=== PATIENT | female | born 1965 | race Caucasian/White ===

== ENCOUNTER 2024-12-14 07:27 | Inpatient (IN) | payer MEDICAID, OTHER ==
[~2024-12-14] VITALS: Ht 170.2 cm; Wt 69.5 kg
[~2024-12-14 07:27] MED LIST: DIAZ2TAB PO; ONDA8TAB9 PO
[2024-12-14 07:54] LABS: MEAN PLATELET VOLUME 7.8 FL (7.4-10.4); RED CELL DISTRIBUTION WIDTH 13.1 % (11.5-14.5)
[2024-12-14] MEDS: normal saline 1000ml 1,000 ML IV ONE ×2 (07:55→11:35)
--- NOTE | 2024-12-14 07:58 | Physician Documentation ---
History of Present Illness ~ Chief Complaint: Nausea Stated Complaint: HAND NUMBNESS AND VOMITING Time Seen by MD: 07:48 Primary Medical Doctor: [facility] HPI 59-year-old female with no past medical history presenting with acute onset nausea and vomiting that started this morning. Patient states that she got to work and suddenly started feeling very nauseous. She had a couple episodes of nonbloody emesis. She reports the nausea has been continuing and she has not been able to keep any food or fluids down. She otherwise denies any diarrhea, chest pain, shortness of breath, fever, chills or any other associated symptoms. Medication Reconciliation Allergies: Coded Allergies: No Known Allergies (Unverified , 08/07/09) Scheduled Ciprofloxacin HCl (Ciprofloxacin HCl), 1 TAB PO BID Miscellaneous Medications Home Med List (No Home Medications), (Reported) Discontinued Medications Diazepam (Valium), 1 TABLET PO TID PRN for pain Discontinued Reason: patient no longer taking Ondansetron (Zofran Odt), 4 MG PO QID PRN for nausea/vomiting Discontinued Reason: patient no longer taking Past Medical History Past Medical History: No Pertinent History, Chronic Pain Past Surgical History: Lives In: Home Occupation: employed Review of Systems All Other Systems at this time: Reviewed and Negative Physical Exam Vital Signs: Temperature: 98.9, Source: Temporal, Heart Rate: 70, Respiratory Rate: 18, BP: 102/53, Pulse Oximetry: 100, Weight: 69.550 Oxygen Flow Rate: 0 Physical Exam I have reviewed the triage vitals. CONST: Well developed and well nourished. In no acute distress HENT: Head Atraumatic EYES: Pupils are equal, round and reactive to light. Normal conjunctiva NECK: Normal range of motion. Supple. CARDIO: Normal rate and regular rhythm. No murmurs, rubs, or gallops. S1, S2. PULM/CHEST: No respiratory distress. Lungs clear to auscultation. No wheeze ABD: Soft and nontender. Nondistended. Bowel sounds normal. No guarding. : Exam deferred MSK: No edema. No deformity. NEURO: Alert and oriented to person, place and time. Moving all extremities SKIN: Warm and dry. PSYCH: Normal mood and affect. Good eye contact. Progress Results/Orders Results/Orders Orders - KALEIGH CEDENO MD Culture Blood (12/14/24 09:47) Page Hospitalist (12/14/24 10:52) Fill Out Med Reconciliation (12/14/24 10:52) Chest,Single View (12/14/24 11:17) Completed Orders - KALEIGH CEDENO MD Cbc/Diff (12/14/24 07:34) Lipase (12/14/24 07:34) CMP (12/14/24 07:34) Hs Troponin I W Calculations (12/14/24 07:54) Normal Saline 1000ml (0.9% Sodium Chlori (12/14/24 07:55) Electrocardiogram (12/14/24 07:54) Ondansetron Inj. (Zofran 4mg/2ml Vial) (12/14/24 07:55) Ua W/Microscopic, Cult If Ind (12/14/24 08:38) Cult Urine + [address] (12/14/24 09:11) Ceftriaxone/U3n-Pqkyjkqo 1gm (Rocephin 1 (12/14/24 09:50) Lacticsepsis (12/14/24 09:47) Normal Saline 1000ml (0.9% Sodium Chlori (12/14/24 10:55) Chest,Single View (12/14/24 11:17) Lactic,2hr (12/14/24 11:12) LA (12/14/24 13:15) Vital Signs 12/14/24 12/14/24 12/14/24 12/14/24 07:30 08:31 08:32 10:02 Temp 98.9 Pulse 70 57 68 Resp 18 16 16 18 B/P (MAP) 102/53 120/86 (97) Pulse Ox 100 98 98 O2 Flow Rate 0 Laboratory Tests Test 12/14/24 07:44 12/14/24 08:38 12/14/24 11:13 12/14/24 12:19 White Blood Count 8.7 Red Blood Count 4.50 Hemoglobin 13.8 Hematocrit 40.0 Mean Corpuscular Volume 89.0 Mean Corpuscular Hemoglobin 30.7 Mean Corpuscular Hemoglobin Concent 34.5 Red Cell Distribution Width 13.1 Platelet Count 344 Mean Platelet Volume 7.8 Neutrophils (%) (Auto) 64.9 Lymphocytes (%) (Auto) 25.3 Monocytes (%) (Auto) 8.0 Eosinophils (%) (Auto) 1.1 Basophils (%) (Auto) 0.7 Neutrophils # (Auto) 5.7 Lymphocytes # (Auto) 2.2 Monocytes # (Auto) 0.7 Eosinophils # (Auto) 0.1 Basophils # (Auto) 0.1 CBC Comment Sodium Level 141 Potassium Level 3.4 L Chloride Level 105 Carbon Dioxide Level 24.6 Anion Gap 11 Blood Urea Nitrogen 14 Creatinine 0.68 Estimated GFR/1.73 m2 89 BUN/Creatinine Ratio 20.6 H Glucose Level 165 H Lactic Acid Level 3.6 H 2.2 H Calcium Level 8.8 Total Bilirubin 0.5 Aspartate Amino Transf (AST/SGOT) 16 Alanine Aminotransferase (ALT/SGPT) 11 L Alkaline Phosphatase 45 L Troponin I High Sensitivity 26 Total Protein 7.0 Albumin 3.3 L Globulin 3.7 Albumin/Globulin Ratio 0.9 L Lipase 44 Chemistry Comments Urine Specimen Description Cln catch midstream Urine Color Yellow Urine Clarity Cloudy Urine pH 6.0 Urine Specific [place] 1.020 Urine Protein Negative Urine Glucose (UA) Negative Urine Ketones Negative Urine Occult Blood Trace-intact Urine Nitrite Negative Urine Bilirubin Negative Urine Urobilinogen 0.2 Urine Leukocyte Esterase Large H Urine RBC 0-2 Urine WBC 50-100 H Urine Squamous Epithelial Cells Moderate Urine Transitional Epithelial Cells Moderate Urine Bacteria 4+ Urine Mucus Moderate Urine Culture Indicated Indicated Volume Urine Centrifuged 10 ml Urine Comment Prothrombin Time 11.0 INR International Normalized Ratio 1.1 Activated Partial Thromboplast Time 26 Coagulation Comments Hemoglobin A1c 5.5 Phosphorus Level 3.1 Magnesium Level 1.8 Pro-B-Type Natriuretic Peptide 43 Thyroid Stimulating Hormone (TSH) 0.52 Test 12/14/24 13:31 Lactic Acid Level 1.9 Microbiology Date/Time Source Procedure Growth Status 12/14/24 10:12 Blood Arm Left Blood Culture - Preliminary NO GROWTH AFTER 4 DAYS Resulted 12/14/24 09:11 Urine Clean Catch Midstream Urine Culture - Final MIXED EL ISOLATED.... Complete EKG/XRAY/CT/US/VASC/MRI EKG : Additional Comment EKG as interpreted by me indicating sinus bradycardia, no ischemia, rate of 53 beats per minute, normal axis CT : Impression DI CHEST,SINGLE VIEW, HISTORY: SOB COMPARISON: None None TECHNICAL DATA: 1 view of the chest was obtained. FINDINGS: Lines and tubes: None Cardiomediastinal silhouette: normal Pulmonary vasculature: normal Lung expansion: normal Lung airspace: normal Lung interstitium: normal Pleura: normal Pneumothorax: no Bones: Unremarkable Other: no IMPRESSION: No acute intrathoracic abnormality. Medical Decision Making Additional Comments 59-year-old female presenting with nausea and vomiting likely secondary to a urinary tract infection with sepsis and likely pyelo nephritis. Patient's urinalysis is indicative of this. Additionally the patient has not elevated lactic acid level of 3.6. Patient was given 2 L of IV normal saline that started on 1 g of IV ceftriaxone as per sepsis protocol. Patient's vitals are normal luckily and she is not yet an septic shock. Patient however requires treatment with IV antibiotics and IV fluids and should be admitted to the inpatient service. Departure Disposition: ADMITTED INPATIENT Admitted to Inpatient Unit: to hospitalist Admission Level of Care: Med/Surg with Tele Impression: Primary Impression: Pyelonephritis Additional Impression: Sepsis Referrals: NO PRIMARY CARE PROVIDER (PCP) Prescriptions Ciprofloxacin HCl (Ciprofloxacin HCl) 500 Mg Tab 1 TAB PO BID for 5 Days, #10 TAB Prov: LIDIA HOLMAN MD 12/17/24 Signature Scribe Signature: 1 Attestation: 1 KALEIGH CEDENO MD Dec 14, 2024 07:58
[2024-12-14 08:19] LABS: CREATININE 0.68 MG/DL (0.40-0.90); TOTAL CARBON DIOXIDE 24.6 MMOL/L (24-32); eCRCL 88 ML/MIN; eGFR 89 ML/MIN
--- NOTE | 2024-12-14 08:19 | ELECTROCARDIOGRAPH REPORT ---
[facility] Test Date: 2024-12-14 Test Time: 08:15:23 Pat Name: ADOLFO DAMON Department: [facility]-ER Patient ID: [facility]-[id number] Room: Gender: F Enforcement Officer: : 1965 Requested By: KALEIGH CEDENO Order Number: [id number] Reading MD: Measurements Intervals [place] Rate: 53 P: 53 LA: 166 QRS: 31 QRSD: 117 T: 34 QT: 462 QTc: 434 Interpretive Statements Sinus bradycardia Nonspecific intraventricular conduction delay Please click the below link to view image of tracing.
[2024-12-14 08:57] LABS: LEUKOCYTE ESTERASE ,URINE LARGE (Neg); NITRITES, URINE NEGATIVE (Neg); OCCULT BLOOD,URINE TRACE-INTACT (Neg); UA COLLECTION TYPE CLN CATCH MIDSTREAM
[2024-12-14 09:06] LABS: MUCUS STRANDS MODERATE /LPF (Neg); SQUAMOUS EPITHELIAL CELL,UR MODERATE /LPF (FEW)
[2024-12-14] MEDS: ondansetron/PF 4mg/2ml inj IV ONE (09:56)
[2024-12-14] MEDS: CefTRIAXone/D5W-Rocephin 1gm 50 ML IV ONE (09:57)
--- NOTE | 2024-12-14 11:40 | RADIOLOGY REPORT ---
DI CHEST,SINGLE VIEW, HISTORY: SOB COMPARISON: None None TECHNICAL DATA: 1 view of the chest was obtained. FINDINGS: Lines and tubes: None Cardiomediastinal silhouette: normal Pulmonary vasculature: normal Lung expansion: normal Lung airspace: normal Lung interstitium: normal Pleura: normal Pneumothorax: no Bones: Unremarkable Other: no IMPRESSION: No acute intrathoracic abnormality.
--- NOTE | 2024-12-14 11:56 | HISTORY AND PHYSICAL ---
History & Physical Providers to Complaint, nausea, vomiting ~ History of Present Illness Reason for Admit\Complaint: As above History of Present Illness This is a 59-year-old female with no past medical history, relatively in good health, except history of , presenting with acute onset nausea and vomiting that started this morning. Patient states that she got to work and suddenly started feeling very nauseous. She had a couple episodes of nonbloody emesis. She reports the nausea has been continuing and she has not been able to keep any food or fluids down. She otherwise denies any diarrhea, chest pain, shortness of breath, fever, chills or any other associated symptoms. Emergency department patient was evaluated by physician, was diagnosed with UTI, sepsis, hypokalemia, decision was made to admit patient for further evaluation and treatment DM patient started on IV antibiotics and fluids, no additional complaint or concern. Allergies: Coded Allergies: No Known Allergies (Unverified , 08/07/09) Active prescriptions As above Home Medications Home Medications Active Zofran Odt (Ondansetron) 8 Mg Tab.rapdis 4 Mg PO QID PRN Valium (Diazepam) 2 Mg Tablet 1 Tablet PO TID PRN Past Medical History Past Medical History As in HPI Past Surgical History Surgical History Comment History of Past Social History Social History Comment Deny illicit drug abuse tobacco alcohol use live with the family good social support Health Maintenance Health Maintenance Noncontributory ROS ROS Constitutional : no fever , no chills, or weakness. No diaphoresis. Allergic/Immunologic, no lymphadenopathy, no hives, no skin eruptions. Eyes, no recent visual changes, no eye pain, no photophobia. Ears, nose, mouth, throat, no sore throat, no nosebleed, no ear pain. Cardiovascular, no palpitations, skipped beats, chest pain, no peripheral edema, Respiratory, no dyspnea, orthopnea, cough, hemoptysis, chest wall pain. Gastrointestinal, no abdominal pain, positive for nausea, vomiting, no constipation or diarrhea. : no dysuria, hematuria, pelvic pain, urethral d/c. Endocrine, no polyuria, polydipsia, recent unintentional weight gain or loss. Hematologic/Lymphatic, no petechiae, no enlarged lymph nodes, no bone pain. Integumentary, no rash, no skin lesions, Musculoskeletal, no muscle aches, or pain, no muscle cramps, no recent change in gait Neurological, no dizziness, no headache, no syncope, no paresthesia. Psychiatric, no delusions, visual hallucinations, or hearing hallucinations. ROS - in rest is as in HPI. Exam Vitals: Vital Signs Date Time Temp Pulse Resp B/P (MAP) Pulse Ox O2 Delivery O2 Flow Rate FiO2 12/14/24 10:02 68 18 98 12/14/24 08:31 120/86 (97) 12/14/24 07:30 98.9 0 Vital signs, stable ,afebrile. Pulse Oximetry reflects adequate oxygenation. Low blood pressure on admission, BMI is twenty-four, weight 69 kg General: well developed, well nourished. Awake , alert, and oriented x4, resting comfortably in the bed, in no acute distress . Skin: Warm, dry, no pallor, no rash or petechiae. HEENT: Atraumatic, normocephalic, EOMI, anicteric sclera B; pink conjunctiva; PERRLA, normal oropharynx, moist oral and nasal mucosa. Tympanic membrane , nose , throat clear. Neck: Trachea midline. Supple, full range of motion, no JVD, bruit , hepatojugular reflex , lymphadenopathy or masses, or other lesions Cardiac: Regular rhythm, regular rate no murmurs, rubs, or gallops. Normal S1 and S2, no S3 noticed. PMI is normal. Respiratory: Equal breath sounds bilaterally, no tachypnea; lungs clear to auscultation bilaterally, no wheezing ,rub or rales, or crackles. Chest wall is symmetric and without deformity. No signs of trauma. Chest wall is nontender. No signs of respiratory distress. Resonance is normal upon percussion bilaterally. Gastrointestinal: Abdomen symmetric, non-distended, soft, non-tender, normal bowel sounds x4 quadrant, normoactive, no hepatosplenomegaly , no masses , no bruit, no flank pain bilaterally. No voluntary guarding, rebound, or rigidity. No tenderness to percussion. No pulsatile masses. Equal femoral pulses. No Taylor's sign or McBurney point tenderness. Back; no CVA tenderness bilaterally, no deformities. Neck and back are without deformity as well. No tenderness noted on palpation of the spinous processes. Spinous processes are midline. Cervical, thoracic, and lumbar paraspinal muscles are not tender and are without spasm. : Deferred by patient Musculoskeletal: Extremities, normal range of motion, non-tender, muscle strength 5/5 x 4. Negative Homans signs bilaterally on lower extremity. Distal pulses full symmetrical, no clubbing, cyanosis , edema. Neurological: Speech is clear, alert, and oriented x 4. No motor or sensory deficit, deep tendon reflexes normal, cerebellar intact. Cranial nerves II-XII intact. Psych: Alert and or appropriate, normal affect. Vascular: Good distal pulses, which are equal x4; capillary refill less than 2 seconds. Lymphatic, no lymphadenopathy. Diagnostic Data Last Recorded Lab Results: 12/14/24 0744 12/14/24 0744 Advance Care Planning Advanced Care plannin - 30 Minutes Additional Plan Assessment Complicated UTI Sepsis secondary to above Hypovolemia Hypokalemia Hypoalbuminemia A right hepatic lobe lesion Bilateral hands paresthesia Plan IV antibiotics, fluids, Antiemetics Additional lab work pending Ultrasound abdomen pending Replace electrolytes I reconciled home medications DVT gastropathy prophylaxis addressed Sepsis Screening Reassessment Date: Dec 14, 2024 Date of Service: Dec 14, 2024 Billing Provider: LIDIA HOLMAN MD Common Visit Codes: 56951-[id number] INP/OBS CARE (HIGH) Secondary Visit Codes: [id number]-[id number] CARE PLAN 30 MINUTES LIDIA HOLMAN MD Dec 14, 2024 11:56
[2024-12-14] MEDS ORDERED: ondansetron/PF 4mg/2ml inj IV PRN (12:00)
[2024-12-14] MEDS ORDERED: magnesium sulf-water 4G/100mL 100 ML IV PRN (12:00)
[2024-12-14] MEDS ORDERED: magnesium sulf-water 2g/50mL 50 ML IV PRN (12:00)
[2024-12-14] MEDS ORDERED: magnesium Cl slow-release 64mg tablet PO PRN (12:00)
[2024-12-14] MEDS ORDERED: metoclopramide 5 mg/ml inj IV PRN (12:00)
[2024-12-14] MEDS ORDERED: ondansetron 4mg rapidly disintigrating tab PO PRN (12:00)
[2024-12-14] MEDS ORDERED: HYDROcodone/acetaminophen 5mg/325mg tablet PO PRN (12:00)
[2024-12-14] MEDS ORDERED: mag hydrox/Alum hydrox/simeth 30ml oral suspension PO PRN (12:00)
[2024-12-14] MEDS ORDERED: HYDROcodone/acetaminophen 10/325mg tab PO PRN (12:00)
[2024-12-14] MEDS ORDERED: acetaminophen 650mg rectal suppository RC PRN (12:00)
[2024-12-14] MEDS ORDERED: bisacodyl 10mg suppository rectal RC PRN (12:00)
[2024-12-14] MEDS ORDERED: magnesium hydroxide 30ml (MOM) UD suspension PO PRN (12:00)
[2024-12-14] MEDS ORDERED: potassium Cl 40MEQ/1/2NS 520ml 520 ML IV PRN (12:00)
[2024-12-14] MEDS ORDERED: potassium Cl 20 mEq SR tablet PO PRN (12:00)
[2024-12-14] MEDS: normal saline 1000ml 1,000 ML IV SCH (12:07)
[2024-12-14 12:48] LABS: APTT 26 SECONDS (22-32); INR 1.1 INR
[2024-12-14 13:02] LABS: PHOSPHORUS 3.1 MG/DL (2.3-4.5); PRO BRAIN NATRIURETIC PEPTIDE 43.0 PG/ML (0-125)
--- NOTE | 2024-12-14 13:19 | RADIOLOGY REPORT ---
CT CT HEAD Indication: paresthesia B UE EXAM DATE: 12/14/2024 12:52 PM COMPARISON: None TECHNIQUE: CT of the head without intravenous contrast. RADIATION DOSE: CTDIvol: 52 mGy, DLP: 951 mGy*cm FINDINGS: There is no intracranial hemorrhage. There is no extra-axial fluid, mass, mass effect or midline shift. The ventricles are midline and normal in size. Basilar cisterns are patent. Powell-white differentiation is maintained. The paranasal sinuses and mastoids are well-pneumatized. Imaged portion of the orbits are unremarkable. IMPRESSION: No intracranial hemorrhage or mass effect.
--- NOTE | 2024-12-14 13:41 | RADIOLOGY REPORT ---
EXAM: CT CT ABDOMEN PELVIS HISTORY: uri sepsis TECHNIQUE: Volumetric multidetector CT images of the abdomen and pelvis were obtained after the administration of intravenous contrast. All CT scans at this facility use dose modulation, iterative reconstruction, and/or weight based dosing when appropriate to reduce radiation dose to as low as reasonably achievable. COMPARISON: None FINDINGS: [LOWER CHEST]: The partially visualized lung bases are clear without a pleural effusion. [LIVER]: Right hepatic lobe lesion measuring 4.6 cm in the right inferior hepatic tip, incompletely characterized. Differential includes solid mass consider further evaluation with dedicated CT abdomen pelvis with contrast, MRI of the liver, and/or ultrasound of the liver [GALLBLADDER AND BILIARY TREE]: No cholelithiasis. [SPLEEN]: Unremarkable. [PANCREAS]: Unremarkable. [ADRENAL GLANDS]: Unremarkable [KIDNEYS]: No hydronephrosis. No nephroureterolithiasis. No suspicious focal lesion. [BLADDER]: Unremarkable for the degree distention. [REPRODUCTIVE ORGANS]: Unremarkable. [BOWEL/MESENTERY]: Stomach is normal. No CT evidence of bowel obstruction. jqmy-[id number] stool burden. Normal appendix. [ASCITES]: Absent [LYMPHADENOPATHY]: No pathologically enlarged lymph nodes by CT size criteria [VASCULATURE]: No aneurysmal dilatation. Indeterminate [ABDOMINAL WALL]: Prior lower midline incision [MUSCULOSKELETAL]: No acute fracture or aggressive focal osseous lesion. IMPRESSION: 1. No CT evidence of an acute abdominal/pelvic process. 2. Indeterminate right hepatic lobe lesion measuring 4.6 cm. 3. Consider further evaluation with dedicated CT abdomen pelvis with contrast, MRI of the liver, and/or ultrasound of the liver.
[2024-12-14] MEDS ORDERED: NO HOME MEDS (15:57)
[2024-12-14] MEDS: potassium Cl 20 mEq SR tablet PO PRN (18:18)
[2024-12-14 18:30] VITALS: BP 127/77; PULSE 61; RESP 14; TEMP 97.6; O2SAT 98
[2024-12-14] MEDS: docusate sod 100mg capsule PO SCH (20:00)
[2024-12-14] MEDS: K and/or MAG REPLACEMENT MC SCH (20:00)
[2024-12-14] MEDS: heparin, porcine 5000 units/ml vial SQ SCH (20:00)
[2024-12-14 22:00] VITALS: BP 108/67; PULSE 51; RESP 14; TEMP 97.8; O2SAT 97
[2024-12-15 05:06] LABS: MEAN PLATELET VOLUME 7.8 FL (7.4-10.4); RED CELL DISTRIBUTION WIDTH 12.9 % (11.5-14.5)
[2024-12-15 05:27] LABS: CHOL/HDL RATIO 3.0 (0.00-4.99); CREATININE 0.71 MG/DL (0.40-0.90); LDL CHOLESTEROL 113 MG/DL (50-100); TOTAL CARBON DIOXIDE 27.8 MMOL/L (24-32); eCRCL 84 ML/MIN; eGFR 85 ML/MIN
[2024-12-15 06:00] VITALS: BP 123/78; PULSE 60; RESP 15; TEMP 97.4; O2SAT 95
[2024-12-15] MEDS: CefTRIAXone 2gm/D5W 50ml BAG 50 ML IV SCH (07:33)
[2024-12-15] MEDS: pantoprazole 40mg Tablet.DR PO SCH (07:33)
[2024-12-15 08:00] VITALS: RESP 15; O2SAT 95
[2024-12-15 10:00] VITALS: BP 127/80; PULSE 60; RESP 16; TEMP 98.2; O2SAT 98
[2024-12-15 18:00] VITALS: BP 115/71; PULSE 60; RESP 16; TEMP 98.3; O2SAT 97
--- NOTE | 2024-12-15 18:35 | PROGRESS NOTE ---
Daily Progress Note Providers to CC ~ no new complaint today feels better, good appetite grossly Central Line/PICC still needed: No Soriano-Non Protocol Soriano Indications Met/Not Met: F/C Indications Not Met Antibiotic Timeout Antibiotic Ordered?: Yes MRSA Education MRSA Education Provided to pt: Yes Subjective As above Objective Vital Signs Date Time Temp Pulse Resp B/P (MAP) Pulse Ox O2 Delivery O2 Flow Rate FiO2 12/15/24 10:00 98.2 60 16 127/80 (96) 98 Room Air 12/14/24 07:30 0 Vital signs, stable ,afebrile. Pulse Oximetry reflects adequate oxygenation. General: well developed, well nourished. Awake , alert, and oriented x4, resting comfortably in the bed, in no acute distress . Skin: Warm, dry, no pallor, no rash or petechiae. HEENT: Atraumatic, normocephalic, EOMI, anicteric sclera B; pink conjunctiva; PERRLA, normal oropharynx, moist oral and nasal mucosa. Tympanic membrane , nose , throat clear. Neck: Trachea midline. Supple, full range of motion, no JVD, bruit , hepatojugular reflex , lymphadenopathy or masses, or other lesions Cardiac: Regular rhythm, regular rate no murmurs, rubs, or gallops. Normal S1 and S2, no S3 noticed. PMI is normal. Respiratory: Equal breath sounds bilaterally, no tachypnea; lungs clear to auscultation bilaterally, no wheezing ,rub or rales, or crackles. Chest wall is symmetric and without deformity. No signs of trauma. Chest wall is nontender. No signs of respiratory distress. Resonance is normal upon percussion bilaterally. Gastrointestinal: Abdomen symmetric, non-distended, soft, non-tender, normal bowel sounds x4 quadrant, normoactive, no hepatosplenomegaly , no masses , no bruit, no flank pain bilaterally. No voluntary guarding, rebound, or rigidity. No tenderness to percussion. No pulsatile masses. Equal femoral pulses. No Taylor's sign or McBurney point tenderness. Back; no CVA tenderness bilaterally, no deformities. Neck and back are without deformity as well. No tenderness noted on palpation of the spinous processes. Spinous processes are midline. Cervical, thoracic, and lumbar paraspinal muscles are not tender and are without spasm. : Deferred palpation Musculoskeletal: Extremities, normal range of motion, non-tender, muscle strength 5/5 x 4. Negative Homans signs bilaterally on lower extremity. Distal pulses full symmetrical, no clubbing, cyanosis , edema. Neurological: Speech is clear, alert, and oriented x 4. No motor or sensory deficit, deep tendon reflexes normal, cerebellar intact. Cranial nerves II-XII intact. Psych: Alert and or appropriate, normal affect. Vascular: Good distal pulses, which are equal x4; capillary refill less than 2 seconds. Lymphatic, no lymphadenopathy. Result Diagram: 12/15/24 0443 12/15/24 0443 Coagulation Studies Laboratory Tests Test 12/14/24 12:19 Prothrombin Time 11.0 SECONDS (9.0-12.0) INR International Normalized Ratio 1.1 INR Activated Partial Thromboplast Time 26 SECONDS (22-32) Coagulation Comments Problem\Assessment\Plan Assessment Complicated UTI Sepsis secondary to above Hypovolemia Hypokalemia Hypoalbuminemia A right hepatic lobe lesion Bilateral hands paresthesia Plan IV antibiotics, fluids, Antiemetics Additional lab work pending Ultrasound abdomen pending Replace electrolytes I reconciled home medications DVT gastropathy prophylaxis addressed Sepsis Screening Reassessment Date: Dec 15, 2024 Date of Service: Dec 15, 2024 Billing Provider: LIDIA HOLMAN MD Common Visit Codes: [id number] INP/OBS CARE(HIGH) LIDIA HOLMAN MD Dec 15, 2024 18:35
[2024-12-15 22:00] VITALS: BP 120/82; PULSE 58; RESP 14; TEMP 98; O2SAT 97
[2024-12-16 05:02] LABS: MEAN PLATELET VOLUME 7.9 FL (7.4-10.4); RED CELL DISTRIBUTION WIDTH 13.2 % (11.5-14.5)
[2024-12-16 05:21] LABS: CREATININE 0.64 MG/DL (0.40-0.90); TOTAL CARBON DIOXIDE 31.4 MMOL/L (24-32); eCRCL 93 ML/MIN; eGFR > 90 ML/MIN
[2024-12-16 06:00] VITALS: BP 129/86; PULSE 55; RESP 14; TEMP 97.6; O2SAT 99
--- NOTE | 2024-12-16 08:23 | RADIOLOGY REPORT ---
INDICATION: hepatic mass TECHNIQUE: Multiple real-time sonographic images were obtained of the right upper quadrant. COMPARISON: CT CT ABDOMEN PELVIS on DOS: 12/14/24 FINDINGS: Echogenic mass in the right hepatic lobe measures 4.2 cm. The liver measures 16.6 cm. There is no intrahepatic or extrahepatic ductal dilatation. The common duct measures 0.2 cm. The gallbladder is without evidence of stone or sludge. The gallbladder wall measures 0.3 cm and is within normal limits. The right kidney measures 10.4 cm. The right kidney is normal in contour, size, and shape. The echogenicity is normal. There is no hydronephrosis. The pancreas is not well visualized due to overlying bowel gas. IMPRESSION: Echogenic mass in the right hepatic lobe measures 4.2 cm. This is indeterminate. Recommend further evaluation with CT or MRI using a hepatic mass protocol.
[2024-12-16 18:00] VITALS: BP 131/84; PULSE 59; RESP 16; TEMP 97.7; O2SAT 100
--- NOTE | 2024-12-16 18:41 | PROGRESS NOTE ---
Daily Progress Note Providers to CC Feels better today tolerating medication fine ~ Central Line/PICC still needed: No Soriano-Non Protocol Soriano Indications Met/Not Met: F/C Indications Not Met Antibiotic Timeout Antibiotic Ordered?: Yes MRSA Education MRSA Education Provided to pt: Yes Subjective As above Objective Vital Signs Date Time Temp Pulse Resp B/P (MAP) Pulse Ox O2 Delivery O2 Flow Rate FiO2 12/16/24 08:00 Room Air 12/16/24 06:00 97.6 55 14 129/86 (100) 99 12/14/24 07:30 0 Vital signs, stable ,afebrile. Pulse Oximetry reflects adequate oxygenation. General: well developed, well nourished. Awake , alert, and oriented x4, resting comfortably in the bed, in no acute distress . Skin: Warm, dry, no pallor, no rash or petechiae. HEENT: Atraumatic, normocephalic, EOMI, anicteric sclera B; pink conjunctiva; PERRLA, normal oropharynx, moist oral and nasal mucosa. Tympanic membrane , nose , throat clear. Neck: Trachea midline. Supple, full range of motion, no JVD, bruit , hepatojugular reflex , lymphadenopathy or masses, or other lesions Cardiac: Regular rhythm, regular rate no murmurs, rubs, or gallops. Normal S1 and S2, no S3 noticed. PMI is normal. Respiratory: Equal breath sounds bilaterally, no tachypnea; lungs clear to auscultation bilaterally, no wheezing ,rub or rales, or crackles. Chest wall is symmetric and without deformity. No signs of trauma. Chest wall is nontender. No signs of respiratory distress. Resonance is normal upon percussion bilaterally. Gastrointestinal: Abdomen symmetric, non-distended, soft, non-tender, normal bowel sounds x4 quadrant, normoactive, no hepatosplenomegaly , no masses , no bruit, no flank pain bilaterally. No voluntary guarding, rebound, or rigidity. No tenderness to percussion. No pulsatile masses. Equal femoral pulses. No Taylor's sign or McBurney point tenderness. Back; no CVA tenderness bilaterally, no deformities. Neck and back are without deformity as well. No tenderness noted on palpation of the spinous processes. Spinous processes are midline. Cervical, thoracic, and lumbar paraspinal muscles are not tender and are without spasm. : Not indicated Musculoskeletal: Extremities, normal range of motion, non-tender, muscle strength 5/5 x 4. Negative Homans signs bilaterally on lower extremity. Distal pulses full symmetrical, no clubbing, cyanosis , edema. Neurological: Speech is clear, alert, and oriented x 4. No motor or sensory deficit, deep tendon reflexes normal, cerebellar intact. Cranial nerves II-XII intact. Psych: Alert and or appropriate, normal affect. Vascular: Good distal pulses, which are equal x4; capillary refill less than 2 seconds. Lymphatic, no lymphadenopathy. Result Diagram: 12/16/2443812/[id number] Coagulation Studies Laboratory Tests Test 12/14/24 12:19 Prothrombin Time 11.0 SECONDS (9.0-12.0) INR International Normalized Ratio 1.1 INR Activated Partial Thromboplast Time 26 SECONDS (22-32) Coagulation Comments Problem\Assessment\Plan Assessment Complicated UTI Sepsis secondary to above Hypovolemia Hypokalemia Hypoalbuminemia A right hepatic lobe lesion Bilateral hands paresthesia Plan IV antibiotics, fluids, Antiemetics Additional lab work pending Ultrasound abdomen completed, MRI of the abdomen pending Replace electrolytes I reconciled home medications DVT gastropathy prophylaxis addressed Sepsis Screening Reassessment Date: Dec 16, 2024 Date of Service: Dec 16, 2024 Billing Provider: LIDIA HOLMAN MD Common Visit Codes: [id number] INP/OBS CARE(HIGH) LIDIA HOLMAN MD Dec 16, 2024 18:41
--- NOTE | 2024-12-16 20:03 | RADIOLOGY REPORT ---
CLINICAL HISTORY: Liver mass TECHNIQUE: MRI of the abdomen was performed with gadolinium 15 mL Clariscan injected intravenously. 3D reconstructed images were created under concurrent radiologist supervision and archived on the PACS system. WID: COMPARISON: US ULTRASOUND OF ABDOMEN on DOS: 12/16/24, CT CT ABDOMEN PELVIS on DOS: 12/14/24 FINDINGS: Lower Thorax: Unremarkable. Liver and Biliary system: Normal-sized liver. Major portal veins are patent. The gallbladder is normal caliber. No biliary ductal dilatation. There is a lobulated T2 hyperintense mass in the inferior aspect of segment 6 of the liver measuring 3.9 x 4.4 cm on series 7, image 18, demonstrating peripheral nodular enhancement. Spleen: Unremarkable. Adrenal Glands and Kidneys: Normal adrenal glands. There is a right renal cyst. There is no hydronephrosis. Pancreas and Retroperitoneum: Unremarkable. Aorta and Major Vessels: Unremarkable. Bowel, Mesentery and Peritoneal space: Unremarkable. Abdominal wall and Osseous Structures: Unremarkable. IMPRESSION: 1. T2 hyperintense mass with peripheral nodular enhancement in segment 6 of the liver favored to reflect a cavernous hemangioma.
[2024-12-16 22:00] VITALS: BP 107/77; PULSE 59; RESP 18; TEMP 98.1; O2SAT 100
[2024-12-17 04:57] LABS: MEAN PLATELET VOLUME 7.8 FL (7.4-10.4); RED CELL DISTRIBUTION WIDTH 13.1 % (11.5-14.5)
[2024-12-17 05:21] LABS: CREATININE 0.62 MG/DL (0.40-0.90); TOTAL CARBON DIOXIDE 28.4 MMOL/L (24-32); eCRCL 96 ML/MIN; eGFR > 90 ML/MIN
[2024-12-17 06:00] VITALS: BP 122/65; PULSE 55; RESP 14; TEMP 98; O2SAT 98
[2024-12-17 08:45] VITALS: RESP 16; O2SAT 98
[2024-12-17 10:00] VITALS: BP 113/85; PULSE 60; RESP 16; TEMP 98.5; O2SAT 99
[2024-12-17] MEDS ORDERED: CIPR-458 PO (11:03)
[2024-12-17] MEDS: GADOTERATE MEGLUMINE 7.5 MMOL/15 ML VIAL IV ONE (11:59)
--- NOTE | 2024-12-17 13:33 | DISCHARGE SUMMARY ---
Discharge Summary Providers to Feels better today asking to be discharged home ~ Discharge Summary Assessment Complicated UTI Sepsis secondary to above Hypovolemia Hypokalemia Hypoalbuminemia A right hepatic lobe lesion, hemangioma Bilateral hands paresthesia Admission Diagnosis: UTI SEPSIS Admission Diagnosis Comment: Complicated UTI Sepsis secondary to above Hypovolemia Hypokalemia Hypoalbuminemia A right hepatic lobe lesion, hemangioma Bilateral hands paresthesia Hospital Course DATE OF ADMISSION: December 14, 2024 DATE OF DISCHARGE: December 17, 2024 Discharge Diagnosis\Comment: Complicated UTI Sepsis secondary to above Hypovolemia Hypokalemia Hypoalbuminemia A right hepatic lobe lesion, hemangioma Bilateral hands paresthesia Operations\Procedures: None Consultants: Non Complications: Non Condition on DC: Stable Discharge Summary: This is a 59-year-old female with no past medical history, relatively in good health, except history of , presenting with acute onset nausea and vomiting that started this morning. Patient states that she got to work and suddenly started feeling very nauseous. She had a couple episodes of nonbloody emesis. She reports the nausea has been continuing and she has not been able to keep any food or fluids down. She otherwise denies any diarrhea, chest pain, shortness of breath, fever, chills or any other associated symptoms. Emergency department patient was evaluated by physician, was diagnosed with UTI, sepsis, hypokalemia, decision was made to admit patient for further evaluation and treatment DM patient started on IV antibiotics and fluids, no additional complaint or concern. After admission patient was extensively evaluated and treated today she has no complaint asking to be discharged home, she will be discharged in stable condition, medication reconciled, follow-up PCP in the morning, return to emergency department if condition worsens, today on physical exam, Vital signs, stable ,afebrile. Pulse Oximetry reflects adequate oxygenation. General: well developed, well nourished. Awake , alert, and oriented x4, resting comfortably in the bed, in no acute distress . Skin: Warm, dry, no pallor, no rash or petechiae. HEENT: Atraumatic, normocephalic, EOMI, anicteric sclera B; pink conjunctiva; PERRLA, normal oropharynx, moist oral and nasal mucosa. Tympanic membrane , nose , throat clear. Neck: Trachea midline. Supple, full range of motion, no JVD, bruit , hepatojugular reflex , lymphadenopathy or masses, or other lesions Cardiac: Regular rhythm, regular rate no murmurs, rubs, or gallops. Normal S1 and S2, no S3 noticed. PMI is normal. Respiratory: Equal breath sounds bilaterally, no tachypnea; lungs clear to auscultation bilaterally, no wheezing ,rub or rales, or crackles. Chest wall is symmetric and without deformity. No signs of trauma. Chest wall is nontender. No signs of respiratory distress. Resonance is normal upon percussion bilaterally. Gastrointestinal: Abdomen symmetric, non-distended, soft, non-tender, normal bowel sounds x4 quadrant, normoactive, no hepatosplenomegaly , no masses , no bruit, no flank pain bilaterally. No voluntary guarding, rebound, or rigidity. No tenderness to percussion. No pulsatile masses. Equal femoral pulses. No Taylor's sign or McBurney point tenderness. Back; no CVA tenderness bilaterally, no deformities. Neck and back are without deformity as well. No tenderness noted on palpation of the spinous processes. Spinous processes are midline. Cervical, thoracic, and lumbar paraspinal muscles are not tender and are without spasm. Musculoskeletal: Extremities, normal range of motion, non-tender, muscle strength 5/5 x 4. Negative Homans signs bilaterally on lower extremity. Distal pulses full symmetrical, no clubbing, cyanosis , edema. Neurological: Speech is clear, alert, and oriented x 4. No motor or sensory deficit, deep tendon reflexes normal, cerebellar intact. Cranial nerves II-XII intact. Psych: Alert and or appropriate, normal affect. Vascular: Good distal pulses, which are equal x4; capillary refill less than 2 seconds. Lymphatic, no lymphadenopathy. *Problems/Diagnosis: (1) Sepsis Status: Acute (2) Pyelonephritis Status: Acute Total Time Spent on D/C: > 30 Minutes Date of Service: Dec 17, 2024 Billing Provider: LIDIA HOLMAN MD Common Visit Codes: 31473-OMM/OBS DISCH DAY >30min LIDIA HOLMAN MD Dec 17, 2024 13:33
== END 2024-12-17 12:35 | disposition home or self-care (01) | DRG 872 ==
LOC: ER 07:28 → UNDOADMIN 12:04 → ED HOLD 12:04 → ORTHO 4S 16:07 → ED HOLD 16:07
PROVIDERS: ADMIT Family Medicine; ATTEND Family Medicine
PROC: BW211ZZ Computerized Tomography (CT Scan) of Abdomen and Pelvis using Low Osmolar Contrast (ICD-10-PCS; principal; 2024-12-14)
DX: A41.9 Sepsis, unspecified organism (principal); N12 Tubulo-interstitial nephritis, not specified as acute or chronic; E88.09 Other disorders of plasma-protein metabolism, not elsewhere classified; E87.6 Hypokalemia; K76.89 Other specified diseases of liver
CPT/HCPCS: 36415; 70450; 71045; 74176; 74183; 76700; 80053; 80061; 81001; 83036; 83605; 83690; 83735; 83880; 84100; 84443; 84484; 85025; 85610; 85730; 87040; 87081; 87088; 93005; 96365; 96375; 99285; A6234; A6258; G0378; J0696; J1644; J2405; J7030